=== PATIENT | male | born 1935 | race Caucasian/White ===

== ENCOUNTER 2017-05-07 10:24 | Emergency (ER) | payer MEDICARE ==
[2017-05-07] MEDS ORDERED: LIDOCAINE VIS-MYLANTA 30 ML UD PO ONE (10:39)
--- NOTE | 2017-05-07 11:24 | RAD ---
EXAM DESCRIPTION: Abdomen Flat Upright CLINICAL HISTORY: 81 years,Male,right lower chest upper abd pain 1 week COMPARISON: None FINDINGS: Bowel gas pattern is nonspecific. There is no evidence of free air or significant air-fluid levels. Bony elements are unremarkable. No evidence of radiopaque stones along the course of the kidneys or ureters. Moderate stool throughout the colon IMPRESSION: Possible degree of constipation. Electronically signed by: Andi Gao MD 05/07/2017 11:24 AM CDT
--- NOTE | 2017-05-07 11:24 | RAD ---
EXAM DESCRIPTION: Chest,2 Views CLINICAL HISTORY: 81 years,Male,right lower chest upper abd pain 1 week COMPARISON: None FINDINGS: There are no consolidations. No effusions. No pneumothoraces. No nodules. Bony elements unremarkable for age. Past sternotomy IMPRESSION: No acute findings seen. Electronically signed by: Andi Gao MD 05/07/2017 11:24 AM CDT
--- NOTE | 2017-05-07 11:57 | ED.PDOC ---
History of Present Illness - General Chief Complaint: GI Problem Stated Complaint: upper abdominal pain x 1 week Time Seen by Provider: 05/07/17 10:38 Source: patient Exam Limitations: no limitations - History of Present Illness Initial Comments: the patient is a 81-year-old male [facility] room with right lateral lower chest discomfort and upper abdominal discomfort for the last week. Pain is intermittent and worse with movement. No shortness of breath. He had a couple of episodes of nausea approximately one week ago No real vomiting. No diarrhea. no central chest pain. No fever. No increased pain or nausea with eating. He does have a cardiac history. No new swelling. Timing/Duration: 1 week Severity: mild Improving Factors: immobilization Worsening Factors: movement Associated Symptoms: chest pain - right lateral Allergies/Adverse Reactions: Allergies NO KNOWN ALLERGY Allergy (Unverified 05/07/17 10:43) Review of Systems - Review of Systems Constitutional: States: no symptoms reported EENTM: States: no symptoms reported Respiratory: States: no symptoms reported Cardiology: States: see HPI, chest pain Gastrointestinal/Abdominal: States: see HPI, abdominal pain Genitourinary: States: no symptoms reported Musculoskeletal: States: no symptoms reported Skin: States: no symptoms reported Neurological: States: no symptoms reported Endocrine: States: no symptoms reported All other Systems: No Change from Baseline Past Medical History (General) - Patient Medical History Hx Seizures: No Hx Stroke: No Hx Dementia: No Hx Asthma: No Hx of COPD: No Hx Cardiac Disorders: No Hx Congestive Heart Failure: No Hx Pacemaker: No Hx Hypertension: Yes Hx Thyroid Disease: No Hx Diabetes: Yes Hx Renal Disease: No Hx Cancer: No Hx of HIV: No Hx Hepatitis C: No Hx MRSA: No Surgical History: coronary bypass surgery - Vaccination History Hx Tetanus, Diphtheria Vaccination: No Hx Influenza Vaccination: No Hx Pneumococcal Vaccination: No Immunizations Up to Date: No - Social History Hx Tobacco Use: No Hx Chewing Tobacco Use: No Hx Alcohol Use: No Hx Substance Use: No Hx Substance Use Treatment: No Hx Depression: No Feels Threatened In Home Enviroment: No Feels Threatened In a Relationship: No Hx Physical Abuse: No Hx Emotional Abuse: No Hx Suspected Abuse: No - Female History Patient is a Female of Child Bearing Age (10 -59 yrs old): No Patient : No Family Medical History - Family History Mother Family History: No Known Living Status: Physical Exam - Physical Exam General Appearance: Alert, Comfortable, No apparent distress Eye Exam: bilateral normal Ears, Nose, Throat: hearing grossly normal, normal ENT inspection, normal pharynx Neck: non-tender, full range of motion, supple, normal inspection Respiratory: lungs clear, normal breath sounds, no respiratory distress, no accessory muscle use Cardiovascular/Chest: normal peripheral pulses, regular rate, rhythm, no edema Peripheral Pulses: radial,right: 2+, radial,left: 2+, dorsalis pedis,right: 2+, dorsalis pedis,left: 2+, posterior tibialis,right: 2+, posterior tibialis,left: 2+ Gastrointestinal/Abdominal: soft, other - the patient has some discomfort palpation over the lateral right mid torso. No bruising. No deformity. No rebound or peritoneal signs. Rectal Exam: deferred Back Exam: normal inspection, no CVA tenderness, no vertebral tenderness Extremity: normal range of motion, non-tender, normal inspection, normal capillary refill, other - he does have chronic +1 edema to the left lower extremity Neurologic: paraprofessional aide II-XII nml as tested, alert, normal mood/affect, oriented x 3 Skin Exam: normal color Comments: Vital Signs - 24 hr 05/07/17 05/07/17 10:43 11:30 Temperature 97 F L Pulse Rate [ 71 67 Left Radial] Respiratory 20 20 Rate Blood Pressure 190/87 124/72 [Left Arm] O2 Sat by Pulse 98 96 Oximetry Progress - Progress Progress: 05/07/17 12:01 the patient is a 81-year-old male presenting with right lateral torso pain. This appears to be due most likely to constipation. He should take 1 dose of milk of magnesia today and repeat that tomorrow. He does need to increase his fluid intake. his creatinine was 1.45 today. This does need to be followed up with his primary care doctor. ER warnings were given. - Results/Orders Results/Orders: Laboratory Tests 05/07/17 05/07/17 05/07/17 11:00 11:00 11:00 WBC 7.7 RBC 5.13 Hgb 14.5 Hct 43.8 MCV 85.4 MCH 28.3 MCHC 33.2 RDW 14.5 Plt Count 200 MPV 7.1 L Absolute Neuts (auto) 5.50 Absolute Lymphs (auto) 1.10 Absolute Monos (auto) 0.80 Absolute Eos (auto) 0.30 Absolute Basos (auto) 0.00 Neutrophils % 71.7 Lymphocytes % 14.7 L Monocytes % 9.7 H Eosinophils % 3.3 Basophils % 0.6 PT 11.0 INR 0.970 PTT (SP) 34.8 Sodium 140 Potassium 4.6 Chloride 104 Carbon Dioxide 29 Anion Gap 11.6 L BUN 28 H Creatinine 1.45 H BUN/Creatinine Ratio 19.3 Random Glucose 160 H Serum Osmolality 288.3 Calcium 9.5 Total Bilirubin 0.6 AST 20 ALT 19 Alkaline Phosphatase 64 Creatine Kinase 94 CK-MB (CK-2) 4.2 CK-MB (CK-2) % Not Reportable Troponin I < 0.02 B-Natriuretic Peptide 93.2 Serum Total Protein 7.3 Albumin 4.1 Globulin 3.2 Albumin/Globulin Ratio 1.3 Amylase 63 Lipase 30 Urine Color Urine Appearance Urine pH Ur Specific [place] Urine Protein Urine Glucose (UA) Urine Ketones Urine Blood Urine Nitrite Urine Bilirubin Urine Urobilinogen Ur Leukocyte Esterase Urine RBC Urine WBC Ur Epithelial Cells Urine Bacteria 05/07/17 11:30 WBC RBC Hgb Hct MCV MCH MCHC RDW Plt Count MPV Absolute Neuts (auto) Absolute Lymphs (auto) Absolute Monos (auto) Absolute Eos (auto) Absolute Basos (auto) Neutrophils % Lymphocytes % Monocytes % Eosinophils % Basophils % PT INR PTT (SP) Sodium Potassium Chloride Carbon Dioxide Anion Gap BUN Creatinine BUN/Creatinine Ratio Random Glucose Serum Osmolality Calcium Total Bilirubin AST ALT Alkaline Phosphatase Creatine Kinase CK-MB (CK-2) CK-MB (CK-2) % Troponin I B-Natriuretic Peptide Serum Total Protein Albumin Globulin Albumin/Globulin Ratio Amylase Lipase Urine Color Yellow Urine Appearance Clear Urine pH 5.0 Ur Specific [place] 1.015 Urine Protein Negative Urine Glucose (UA) Negative Urine Ketones Negative Urine Blood Negative Urine Nitrite Negative Urine Bilirubin Negative Urine Urobilinogen 0.2 Ur Leukocyte Esterase Negative Urine RBC 0 Urine WBC 0 Ur Epithelial Cells 0 Urine Bacteria 0 chest x-ray appears benign. Abdominal x-ray shows constipation. EKG shows normal sinus rhythm with a first degree AV block. No acute ST segment changes concerning for Ischemia. Departure - Departure Clinical Impression: Constipation Qualifiers: Constipation type: unspecified constipation type Qualified Code(s): K59.00 - Constipation, unspecified Disposition: Discharge to Home or Self Care Condition: Fair Departure Forms: ED Discharge - Pt. Copy, Patient Portal Self Enrollment Instructions: DI for Constipation Diet: low fat, low cholesterol - High-fiber Activity: increase activity as tolerated Referrals: Andi Rock III, MD [Primary Care Provider] - 1-5 Days Additional Instructions: the patient is a 81-year-old male presenting with right lateral torso pain. This appears to be due most likely to constipation. He should take 1 dose of milk of magnesia today and repeat that tomorrow. He does need to increase his fluid intake. his creatinine was 1.45 today. This does need to be followed up with his primary care doctor. ER warnings were given.
[2017-05-07 12:11] VITALS: BP 150/78; TEMP 98; O2SAT 98
== END 2017-05-07 12:11 | disposition home or self-care (01) ==
LOC: ER 10:24
DX: K59.00 Constipation, unspecified (principal); R07.9 Chest pain, unspecified; I10 Essential (primary) hypertension; E11.9 Type 2 diabetes mellitus without complications; Z95.1 Presence of aortocoronary bypass graft

== ENCOUNTER → 2017-05-15 | Outpatient (CLI) | payer MEDICARE | LOC: GMAL 16:54 | PROVIDERS: ATTEND Family Medicine | DX: R10.84 Generalized abdominal pain (principal) ==

== ENCOUNTER → 2017-05-17 | Outpatient (CLI) | payer MEDICARE ==
--- NOTE | 2017-05-18 02:09 | US ---
Procedure: US GALLBLADDER Exam Date: 05/17/2017 Ordering Provider: ANDREW WHEELER Clinical Indication: GENERALIZED ABDOMINAL PAIN Comparison: None Technique: Real-time ultrasonography was obtained over the right upper quadrant and computer help desk representative images were recorded. Findings: There are no gallstones within the gallbladder lumen. There is no gallbladder wall thickening or pericholecystic fluid. The gallbladder is normal in size and contour. The extrahepatic common duct is normal in size measuring 4.3 mm. The liver is normal in size and contour. There is normal echogenicity throughout the liver. There is no hepatic mass. There is no intrahepatic ductal dilatation. Visualized portions of the pancreas are unremarkable. There is no ascites. Impression: Negative gallbladder ultrasound. Electronically signed by: Mukund Curtis MD 05/18/2017 2:09 AM CDT
== END | disposition home or self-care (01) ==
LOC: US 09:40
PROVIDERS: ATTEND Family Medicine
DX: R10.84 Generalized abdominal pain (principal)

== ENCOUNTER → 2017-05-24 | Outpatient (CLI) | payer MEDICARE ==
--- NOTE | 2017-05-25 00:59 | NM ---
PROCEDURE: Hepatobiliary w/oCCK Clinical History: RUQ PAIN Indication: Same as above Comparison: There are no comparable prior examinations available at present. Technique: 8.0 Millicuries of technetium mebrofenin was given intravenously and the patient was imaged for the subsequent 60 minutes after radiopharmaceutical injection. An 8 ounce fatty meal challenge was given for evaluation of gallbladder ejection fraction Findings: The liver shows homogenous tracer uptake. There is no intrahepatic biliary dilatation. The activity is seen in the common duct at 9.0 minutes into the study. The gallbladder is visualized at 12.0 minutes into the study. At the end of the initial phase scanning fatty meal challenge was given and the gallbladder was imaged again There is no documentation of any subjective symptoms experienced by the patient following CCK injection. The gallbladder ejection fraction is 43.0 percent. Impression: 1. There is no scintigraphic evidence of acute cholecystitis. 2. The gallbladder ejection fraction is normal at 43% . Electronically signed by: Ludin De La O MD 05/25/2017 12:58 AM CDT Workstation: [id number]
== END | disposition home or self-care (01) ==
LOC: NM 08:40
PROVIDERS: ATTEND Family Medicine
DX: R10.11 Right upper quadrant pain (principal)
CPT/HCPCS: 78226; A9537

== ENCOUNTER → 2017-06-26 | Outpatient (CLI) | payer MEDICARE | END | disposition home or self-care (01) | LOC: GMAL 10:22 | PROVIDERS: ATTEND Family Medicine | DX: D51.3 Other dietary vitamin B12 deficiency anemia (principal); Z12.5 Encounter for screening for malignant neoplasm of prostate; R53.83 Other fatigue; E55.9 Vitamin D deficiency, unspecified | CPT/HCPCS: 82306; 82607; 84443; G0103 ==

== ENCOUNTER → 2018-01-21 | Outpatient (CLI) | payer MEDICARE | LOC: GMAL 15:54 | PROVIDERS: ATTEND Family Medicine | DX: N39.0 Urinary tract infection, site not specified (principal) ==

== ENCOUNTER → 2018-01-22 | Outpatient (CLI) | payer MEDICARE | LOC: GMAL 11:00 | PROVIDERS: ATTEND Family Medicine | DX: D51.3 Other dietary vitamin B12 deficiency anemia (principal) ==

== ENCOUNTER → 2018-05-09 | Outpatient (CLI) | payer MEDICARE | LOC: GMAL 10:40 | PROVIDERS: ATTEND Family Medicine | DX: E55.9 Vitamin D deficiency, unspecified (principal) ==

== ENCOUNTER → 2018-05-10 | Outpatient (CLI) | payer MEDICARE | LOC: GMAL 11:20 | PROVIDERS: ATTEND Family Medicine | DX: N39.0 Urinary tract infection, site not specified (principal) ==

== ENCOUNTER → 2018-06-10 | Outpatient (CLI) | payer MEDICARE ==
--- NOTE | 2018-06-10 09:52 | US ---
EXAM DESCRIPTION: Bladder CLINICAL HISTORY: 82 years Male, PRE/POST VOID COMPARISON: None. FINDINGS: Normal bladder wall thickness. The prevoid volume of the bladder is measured at 64 mL. After voiding, the residuum in the bladder measures 7.4 mL which is small. No bladder mass. No bladder stones. IMPRESSION: No abnormality of the bladder is identified. Electronically signed by: Siddharth Mccabe MD 06/10/2018 9:50 AM CDT
== END ==
LOC: US 08:00
PROVIDERS: ATTEND Family Medicine
DX: N40.1 Benign prostatic hyperplasia with lower urinary tract symptoms (principal)

== ENCOUNTER → 2018-11-07 | Outpatient (CLI) | payer MEDICARE | LOC: GMAL 10:13 | PROVIDERS: ATTEND Family Medicine | DX: E55.9 Vitamin D deficiency, unspecified (principal); Z12.5 Encounter for screening for malignant neoplasm of prostate | CPT/HCPCS: 82306; G0103 ==

== ENCOUNTER → 2019-09-16 | Outpatient (CLI) | payer MEDICARE | LOC: GMAL 15:19 | PROVIDERS: ATTEND Family Medicine | DX: D51.8 Other vitamin B12 deficiency anemias (principal); D50.8 Other iron deficiency anemias ==

== ENCOUNTER 2019-09-21 08:48 | Observation (INO) | payer MEDICARE ==
[2019-09-21] MEDS ORDERED: SODIUM CHLORIDE 0.9% (FLUSH) 10 ML SYG IV PRN ×2 (09:02→11:33)
[2019-09-21] MEDS ORDERED: ASPIRIN TABLET 325 MG TAB PO ONE (09:02)
--- NOTE | 2019-09-21 10:06 | ED.PDOC ---
History of Present Illness - General Chief Complaint: Cardiovascular Problem Stated Complaint: Irregular HR, SOB, dizziness Time Seen by Provider: 09/21/19 09:02 - History of Present Illness Initial Comments: c/o having low heart rate in 30s associated with dizziness and sob this morning , no chest pain or nausea or vomiting Severity: moderate Activities at Onset: none Prior Chest Pain/Cardiac Workup: no prior chest pain Improving Factors: nothing Worsening Factors: nothing Allergies/Adverse Reactions: Allergies NO KNOWN ALLERGY Allergy (Unverified 05/07/17 10:43) Review of Systems - Review of Systems Constitutional: States: no symptoms reported EENTM: States: no symptoms reported Respiratory: States: no symptoms reported Cardiology: States: see HPI Gastrointestinal/Abdominal: States: no symptoms reported Genitourinary: States: no symptoms reported Musculoskeletal: States: no symptoms reported Skin: States: no symptoms reported Neurological: States: no symptoms reported Endocrine: States: no symptoms reported Hematologic/Lymphatic: States: no symptoms reported Past Medical History (General) - Patient Medical History Hx Seizures: No Hx Stroke: No Hx Dementia: No Hx Asthma: No Hx of COPD: No Hx Cardiac Disorders: Yes - Dyslipidemia Hx Congestive Heart Failure: No Hx Pacemaker: No Hx Hypertension: Yes Hx Thyroid Disease: No Hx Diabetes: Yes Hx Renal Disease: No Hx Cancer: No Hx of HIV: No Hx Hepatitis C: No Hx MRSA: No Surgical History: coronary bypass surgery - Vaccination History Hx Tetanus, Diphtheria Vaccination: No Hx Influenza Vaccination: Yes - 2019 Hx Pneumococcal Vaccination: Yes - Social History Hx Tobacco Use: No Hx Chewing Tobacco Use: Yes Hx Alcohol Use: No Hx Substance Use: No Hx Substance Use Treatment: No Hx Depression: No Hx Physical Abuse: No Hx Emotional Abuse: No Hx Suspected Abuse: No - Female History Patient : No Family Medical History - Family History Mother Family History: No Known Living Status: Physical Exam - Physical Exam General Appearance: Alert, Comfortable Eyes, Ears, Nose, Throat Exam: PERRL/EOMI, normal ENT inspection Neck: non-tender, full range of motion, supple, normal inspection Respiratory: chest non-tender, lungs clear, normal breath sounds, no respiratory distress, no accessory muscle use Cardiovascular/Chest: bradycardia Extremity: normal range of motion, non-tender, normal inspection Neurologic: no motor/sensory deficits, alert, normal mood/affect, oriented x 3 Skin Exam: normal color, warm/dry Progress - Progress Progress: 09/21/19 10:08 09/21/19 09:02 Sodium Chloride 0.9% (Flush) [Saline Flush Syringe] 10 ml IV PRN PRN Pulse Ox Stat Chest,1 View [RAD] Stat 09/21/19 09:15 EKG STAT 09/21/19 09:58 EKG Assessment ONCE 09/21/19 10:00 EKG STAT Laboratory Results WBC 9.7 K/mm3 (4.8-10.8) 09/21/19 09:05 RBC 4.13 M/mm3 (4.70-6.10) L 09/21/19 09:05 Hgb 9.8 gm/dL (14.0-18.0) L 09/21/19 09:05 Hct 30.9 % (42.0-52.0) L 09/21/19 09:05 MCV 74.9 fl (80.0-94.0) L 09/21/19 09:05 MCH 23.7 pg (27.0-31.0) L 09/21/19 09:05 MCHC 31.6 g/dL (33.0-37.0) L 09/21/19 09:05 RDW 16.1 % (11.5-14.5) H 09/21/19 09:05 Plt Count 253 K/mm3 (130-400) 09/21/19 09:05 MPV 7.8 fl (7.40-10.4) 09/21/19 09:05 Absolute Neuts (auto) 6.80 K/uL (1.8-6.8) 09/21/19 09:05 Absolute Lymphs (auto) 1.40 K/uL (1.0-3.4) 09/21/19 09:05 Absolute Monos (auto) 1.20 K/uL (0.2-0.8) H 09/21/19 09:05 Absolute Eos (auto) 0.20 K/uL (0.0-0.4) 09/21/19 09:05 Absolute Basos (auto) 0.10 K/uL (0.0-0.1) 09/21/19 09:05 Neutrophils % 70.4 % (42.0-78.0) 09/21/19 09:05 Lymphocytes % 14.2 % (20.0-50.0) L 09/21/19 09:05 Monocytes % 12.4 % (2.0-9.0) H 09/21/19 09:05 Eosinophils % 2.3 % (1.0-5.0) 09/21/19 09:05 Basophils % 0.7 % (0.0-2.0) 09/21/19 09:05 Normal RBC Morphology 1+aniso 1+hypochromia 1+microcytosis Plts danish adequate 1+ovalocytes Stain quality accept 09/21/19 09:05 Normal RBC Morphology 1+aniso 1+hypochromia 1+microcytosis Plts danish adequate 1+ovalocytes Stain quality accept 09/21/19 09:05 Normal RBC Morphology 1+aniso 1+hypochromia 1+microcytosis Plts danish adequate 1+ovalocytes Stain quality accept 09/21/19 09:05 Normal RBC Morphology 1+aniso 1+hypochromia 1+microcytosis Plts danish adequate 1+ovalocytes Stain quality accept 09/21/19 09:05 Normal RBC Morphology 1+aniso 1+hypochromia 1+microcytosis Plts danish adequate 1+ovalocytes Stain quality accept 09/21/19 09:05 Normal RBC Morphology 1+aniso 1+hypochromia 1+microcytosis Plts danish adequate 1+ovalocytes Stain quality accept 09/21/19 09:05 PT 11.0 SECONDS (9.0-10.9) H 09/21/19 09:05 INR 1.10 (0.9-1.15) 09/21/19 09:05 PTT (SP) 30.5 SECONDS (21.8-31.6) 09/21/19 09:05 D-Dimer, Quantitative 0.72 mg/L FEU (0-0.49) H* 09/21/19 09:05 Sodium 138 mmol/L (135-145) 09/21/19 09:05 Potassium 4.3 mmol/L (3.6-5.0) 09/21/19 09:05 Chloride 101 mmol/L (101-111) 09/21/19 09:05 Carbon Dioxide 24 mmol/L (21-31) 09/21/19 09:05 Anion Gap 17.3 (12-18) 09/21/19 09:05 BUN 28 mg/dL (7-18) H 09/21/19 09:05 Creatinine 1.85 mg/dL (0.6-1.3) H 09/21/19 09:05 BUN/Creatinine Ratio 15.1 (10-20) 09/21/19 09:05 Random Glucose 93 mg/dL (70-105) 09/21/19 09:05 Serum Osmolality 280.8 mOsm/L (275-295) 09/21/19 09:05 Calcium 8.8 mg/dL (8.4-10.2) 09/21/19 09:05 Magnesium 1.7 mg/dL (1.8-2.5) L 09/21/19 09:05 Total Bilirubin 0.5 mg/dL (0.2-1.0) 09/21/19 09:05 Direct Bilirubin < 0.1 mg/dL (0-0.2) 09/21/19 09:05 Indirect Bilirubin 0.4 mg/dL (0.2-0.8) 09/21/19 09:05 AST 17 IU/L (10-42) 09/21/19 09:05 ALT 14 IU/L (10-60) 09/21/19 09:05 Alkaline Phosphatase 53 IU/L (42-121) 09/21/19 09:05 Creatine Kinase 104 IU/L (38-174) 09/21/19 09:05 CK-MB (CK-2) 3.4 ng/mL (0.0-4.4) 09/21/19 09:05 CK-MB (CK-2) % Not Reportable 09/21/19 09:05 Troponin I 0.03 ng/mL (0.01-0.05) 09/21/19 09:05 B-Natriuretic Peptide 543.0 pg/ml (0-100) H* 09/21/19 09:05 Serum Total Protein 7.2 gm/dL (6.4-8.2) 09/21/19 09:05 Albumin 3.9 g/dl (3.2-5.5) 09/21/19 09:05 - EKG/XRAY/CT EKG: Sinus - PVCs Departure - Departure Clinical Impression: Symptomatic sinus bradycardia, Bradycardia Disposition: Admit Patient Departure Forms: ED Discharge - Pt. Copy, Patient Portal Self Enrollment Referrals: Andi Rock III, MD [Primary Care Provider] - 1-2 Weeks
--- NOTE | 2019-09-21 10:13 | RAD ---
EXAM: XR Chest, 1 View CLINICAL HISTORY: sob TECHNIQUE: Frontal view of the chest. COMPARISON: 05/07/2017. FINDINGS: Limitations: None. Lungs: See below. Pleural space: Unremarkable. No pneumothorax. Heart: Unremarkable. No cardiomegaly. Mediastinum: Unremarkable. Bones/joints: Unremarkable. Upper abdomen: Stable elevated right hemidiaphragm with mild right basilar scarring. IMPRESSION: No acute findings in the chest. Electronically signed by: Leighann Nelson MD 09/21/2019 10:11 AM CDT
--- NOTE | 2019-09-21 10:19 | HP ---
SUPERVISING PHYSICIAN: Levon Sousa M.D. CHIEF COMPLAINT: Dizziness and low heart rate with mild shortness of breath. HISTORY OF PRESENT ILLNESS: This is an 83 year-old male patient who has had complaints of low heart rate with some mild dizziness over the last day or so. He sees Dr. Jaramillo, retrimmer in [place]. About 3 weeks ago he had an EKG and echocardiogram done. At that time his Metoprolol was decreased to 50 mg b.i.d., and his ARB was also cut in half. He has had several incidences in the past where his heart rate dropped down but he has never been diagnosed with SVT or atrial fibrillation. He spoke with his primary care physician, Dr. Rock, last week and Dr. Rock encouraged him to take a manual heart rate as well as checking on his blood pressure cuff. Yesterday his heart rate got as low as 30, it mostly ran in the 30s to 70s. He was somewhat dizzy and felt like he was stumbling around, and he came to the Emergency Room. In the E. R., his initial vital signs showed a temperature of 97, heart rate 50 to 78 with blood pressure 160/64, respiratory rate 18 and 100% O2 sat on room air. EKG showed sinus ramsey to sinus rhythm. Laboratory showed WBC of 9.7 with hemoglobin 9.8 and hematocrit 30.9. He had a normal differential. He did have an elevated D-dimer at 0.72. We were unable to do a CTA due to his elevated creatinine of 1.85. He does have a history of renal insufficiency. Electrolytes were within normal limits with the exception of his magnesium was elevated at 1.7 and BNP was 543. He does not have a history of congestive heart failure. Chest x-ray showed no acute findings in the chest. I was called for hospital admission. PAST MEDICAL HISTORY: 1. Hypertension. 2. Hyperlipidemia. 3. Mild gastroesophageal reflux disease. 4. Diabetes mellitus type 2. 5. Renal insufficiency. PAST SURGICAL HISTORY: 1. Coronary bypass surgery times 5. 2. Cardiac stents times 2. CURRENT MEDICATIONS: ALLERGIES: NO KNOWN DRUG ALLERGIES. SOCIAL HISTORY: He lives in [place]. He quit smoking 40 years ago. He does occasionally use chewing tobacco. There is no history of ETOH or illicit drug use. REVIEW OF SYSTEMS: GENERAL: Negative for fatigue, fever or weight changes. HEENT: Negative for sinus symptoms, ear pain, vision changes or sore throat. RESPIRATORY: Positive for mild shortness of breath with exertion. Negative for wheezing or coughing. CARDIAC: Positive for fluttering in his chest but denies chest pain or tachycardia. GASTROINTESTINAL: Negative for nausea, vomiting, diarrhea or constipation. GENITOURINARY: Negative for hematuria, dysuria or polyuria. MUSCULOSKELETAL: Negative for arthralgias or myalgias. SKIN: Negative for lesions or rashes. NEUROLOGIC: Positive for dizziness. Negative for headaches or seizures. PHYSICAL EXAMINATION: VITAL SIGNS: Temperature 97.5, heart rate 73, blood pressure 155/55, respiratory rate 20, O2 sat 97% on room air. GENERAL: This is an 83 year-old male patient who is sitting up in his hospital bed. He is in no acute distress. HEENT: Normocephalic and atraumatic. Pupils are equal and reactive. Oropharynx is clear. NECK: Supple without mass. There is no discernible jugular venous distention. RESPIRATORY: Essentially clear to auscultation bilaterally. CHEST: There is equal rise and fall of the chest with inspiration and expiration. CARDIOVASCULAR: Regular rate and rhythm. At times he is slightly bradycardic, sinus rhythm and sinus ramsey on equipment monitor phototypesetting. EXTREMITIES: No clubbing, cyanosis or edema. SKIN: Warm and dry. NEUROLOGIC: He is awake, alert and oriented times three. Cranial nerves II-XII are grossly intact. LABORATORY: Labs and films are as per the History of Present Illness. ASSESSMENT: 1. Dizziness with bradycardia. 2. Acute on chronic renal insufficiency. His baseline creatinine is about 1.4. On admission, it is 1.85. 3. Iron-deficiency anemia. 4. History of hypertension. 5. Hyperlipidemia. PLAN: The patient has been placed in observation. We will monitor his heart rate tonight. Most likely he can be discharged tomorrow. It may be helpful to get a Holter monitor. He will need a followup with Dr. Rock. It should be recommended that he followup with his retrimmer, Dr. Jaramillo, in the next few weeks. Will need to clarify his medications. I believe his Metoprolol was decreased to 50 mg b.i.d. Her ARB has also been decreased but there is no record of what ARB he is on, so we will need to clarify that. I will hold his Metoprolol for right now until we watch his heart rate and blood pressure. His other home medications have been restarted. I will repeat his lab for in the morning. Will continue to monitor closely and follow as needed. #[id number] MTDD
[2019-09-21] MEDS ORDERED: MAGNESIUM SULFATE PREMIX 2GM 2 GM in PREMIX BAG 1 BAG IVPB ONE (11:30)
[2019-09-21] MEDS ORDERED: DEXTROSE 50% 25 GM/50 ML SYG IV PRN (11:32)
[2019-09-21] MEDS ORDERED: GLUCAGON INJ 1 MG VIAL SUBCU PRN (11:32)
[2019-09-21] MEDS ORDERED: ONDANSETRON INJ 4 MG/2 ML VIAL IV PRN (11:33)
[2019-09-21] MEDS ORDERED: IV SET AND CAP CHANGE INJ INJ SCH (12:00)
[2019-09-21] MEDS ORDERED: MAGNESIUM SULFATE PREMIX 2GM 50 ML IVPB ONE (12:16)
[2019-09-21] MEDS: ENOXAPARIN SODIUM 30 MG/0.3 ML SYG SUBCU SCH (12:20)
[2019-09-21] MEDS: VALSARTAN 80 MG TAB PO SCH (12:23)
[2019-09-21] MEDS: INSULIN LISPRO 100 UNITS/ML PEN SUBCU SCH ×2 (16:52→21:32)
[2019-09-21] MEDS ORDERED: metFORMIN HCL 500 MG TAB ONE (19:10)
[2019-09-21] MEDS ORDERED: PANTOPRAZOLE SODIUM IV 40 MG VIAL ONE (19:10)
[2019-09-21] MEDS: SODIUM CHLORIDE 0.9% (FLUSH) 10 ML SYG IV SCH (20:45)
[2019-09-21] MEDS ORDERED: METFORMIN HCL 850 MG PO SCH (21:00)
[2019-09-21] MEDS ORDERED: ATORVASTATIN 20 MG TAB PO SCH (21:00)
[2019-09-22] MEDS ORDERED: PANTOPRAZOLE SODIUM IV 40 MG VIAL IV SCH (06:30)
[2019-09-22] MEDS ORDERED: POTASSIUM CHLORIDE 10 MEQ TAB PO SCH (07:30)
[2019-09-22] MEDS: INSULIN LISPRO 100 UNITS/ML PEN SUBCU SCH ×3 (07:31→17:09)
[2019-09-22] MEDS: SODIUM CHLORIDE 0.9% (FLUSH) 10 ML SYG IV SCH (07:51)
[2019-09-22] MEDS: ENOXAPARIN SODIUM 30 MG/0.3 ML SYG SUBCU SCH (07:52)
[2019-09-22] MEDS: VALSARTAN 80 MG TAB PO SCH (07:54)
[2019-09-22] MEDS ORDERED: METFORMIN HCL 850 MG PO SCH (09:00)
[2019-09-22] MEDS ORDERED: FUROSEMIDE 40 MG TAB PO SCH (09:00)
[2019-09-22] MEDS ORDERED: SODIUM CHLORIDE 0.9% 1000ML 1,000 ML IVS ONE (12:02)
[2019-09-22] MEDS: METOPROLOL TARTRATE 25 MG TAB PO SCH ×2 (12:26→17:09)
[2019-09-22 16:27] VITALS: BP 123/58; TEMP 98.1; O2SAT 97
--- NOTE | 2019-09-22 21:24 | DS ---
SUPERVISING PHYSICIAN: Landry Walsh M.D. ADMISSION DIAGNOSIS: 1. Dizziness with bradycardia. 2. Acute on chronic renal insufficiency. His baseline creatinine is about 1.4. On admission, it is 1.85. 3. Iron-deficiency anemia. 4. History of hypertension. 5. Hyperlipidemia. DISCHARGE DIAGNOSIS: 1. Dizziness with associated orthostatic hypotension likely due to mild hypovolemia and underlying anemia, specifically iron-deficiency anemia exacerbated by bradycardia due to beta blockers including Metoprolol showing improvement with fluids and medication dosage regimen change. 2. Chronic renal insufficiency at baseline levels. 3. Iron-deficiency anemia contributing to #1. 4. History of hypertension on Valsartan and Metoprolol possibly contributing to #1 needing medication regimen dosage changes. 5. Hyperlipidemia. REASON FOR HOSPITALIZATION: This is an 83 year-old male patient who has had complaints of low heart rate with some mild dizziness over the last day or so. He sees Dr. 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 About 3 weeks ago he had an EKG and echocardiogram done. At that time his Metoprolol was decreased to 50 mg b.i.d., and his ARB was also cut in half. He has had several incidences in the past where his heart rate dropped down but he has never been diagnosed with SVT or atrial fibrillation. He spoke with his primary care physician, Dr. Rock, last week and Dr. Rock encouraged him to take a manual heart rate as well as checking on his blood pressure cuff. Yesterday his heart rate got as low as 30, it mostly ran in the 30s to 70s. He was somewhat dizzy and felt like he was stumbling around, and he came to the Emergency Room. In the E. R., his initial vital signs showed a temperature of 97, heart rate 50 to 78 with blood pressure 160/64, respiratory rate 18 and 100% O2 sat on room air. EKG showed sinus ramsey to sinus rhythm. Laboratory showed WBC of 9.7 with hemoglobin 9.8 and hematocrit 30.9. He had a normal differential. He did have an elevated D-dimer at 0.72. We were unable to do a CTA due to his elevated creatinine of 1.85. He does have a history of renal insufficiency. Electrolytes were within normal limits with the exception of his magnesium was elevated at 1.7 and BNP was 543. He does not have a history of congestive heart failure. Chest x-ray showed no acute findings in the chest. The patient was admitted in stable condition. LABORATORY STUDIES: White count on admission was 9,700, at discharge was 7,200. Hemoglobin and hematocrit after fluids stabilized at 9 and 28.2 respectively. Initially his hemoglobin was 9.8 and hematocrit 30.9, platelet count was within normal limits at 220,000. Differential did show to be without a left shift but his RBC indices indicated microcytic hypochromic anemia. Coagulation studies showed just slightly elevated D-dimer at 0.72. PT was 11, PTT 30.5. Chemistries on admission showed normal electrolytes as well as discharge with creatinine 1.85, magnesium was slightly low at 1.7 but normalized after replacement at 2.0. BNP was slightly elevated at 543. Liver functions were all within normal limits. Stool occult blood was negative. RADIOLOGY: Chest x-ray in the E. R. per radiology interpretation prior to admission showed to be without any acute findings. HOSPITAL COURSE: Mr. Kaur was placed in observation for dizziness. He was given IV fluids. He did have some orthostatic blood pressures during his admission initially before he was given fluids. He was positive for orthostatic hypotension but improved with fluids and prior to discharge was showing blood pressure 145/72 sitting, 156/83 standing and supine was 145/73. Heart rate was anywhere from 75 to 93. He was afebrile. Final blood pressure on discharge was 123/58, heart rate 61. He was no longer showing any dizziness and was asymptomatic. His EKG did show bigeminy on admission and was showing just some rare trigeminy prior to discharge but no acute changes in regards to ST or T wave changes. PHYSICAL EXAMINATION: VITAL SIGNS: He was satting 97% on room air with 18 respirations. GENERAL: The patient was showing to be alert and oriented. He was ambulating without any reported dizziness. CHEST: Clear to auscultation. HEART: Irregular rate and rhythm in the 80s. ABDOMEN: Soft, non-tender. Positive bowel sounds. EXTREMITIES: Showed just a trace of edema bilaterally. Again, he was showing to be stable after fluids. I initially talked with Dr. Rock. His H&H is showing to be stable. He is going to be discharged to followup with Dr. Rock on Sunday after discharge to followup as an outpatient. PLAN: Mr. Kaur is discharged and scheduled to see Dr. Rock on Sunday to repeat labs, including H&H. I did make a medication change in regard to his Metoprolol which we decreased from 10 b.i.d. to 25 mg b.i.d. All other medications were continued as prior to hospitalization. He was given a prescription for a week's worth of the new dosing of Metoprolol awaiting followup with Dr. Rock. He was also placed on a 48 hour Holter monitor. He was given instructions should he have any return of his symptoms or any other concerning symptoms, he was to return to the E. R. or call 911. Diet on discharge was diabetic diet as tolerated. Activity is as tolerated. Medications on discharge included: 1. Metoprolol 25 mg b.i.d. for 7 days awaiting followup with Dr. Rock and to hold his previous dosage of 50 mg b.i.d. All other medications were continued as is prior to hospitalization, includin. Metformin 850 mg b.i.d. 2. Insulin sliding scale 10 to 12 units as directed daily. 3. Lantus 65 units daily. 4. Rosuvastatin 40 mg daily. 5. Potassium chloride 10 mEq daily. 6. Lasix 20 mg daily. 7. Metoprolol as noted above. He is to resume his ARB as directed prior to his admission to the hospital. Condition on discharge was stable and improved. DISPOSITION: The patient is discharged home. #[id number] [facility]TDD
== END 2019-09-22 17:55 | disposition home or self-care (01) ==
LOC: ER 08:48 → MS 10:17
PROVIDERS: ADMIT Nurse Practitioner Acute Care; ATTEND Nurse Practitioner Family
DX: I95.1 Orthostatic hypotension (principal); R42 Dizziness and giddiness; R00.1 Bradycardia, unspecified; N17.9 Acute kidney failure, unspecified; I11.0 Hypertensive heart disease with heart failure; E11.22 Type 2 diabetes mellitus with diabetic chronic kidney disease; N18.9 Chronic kidney disease, unspecified; D50.9 Iron deficiency anemia, unspecified; E87.5 Hyperkalemia; E83.42 Hypomagnesemia; K21.9 Gastro-esophageal reflux disease without esophagitis; E78.5 Hyperlipidemia, unspecified; F17.220 Nicotine dependence, chewing tobacco, uncomplicated; I49.3 Ventricular premature depolarization; Z79.4 Long term (current) use of insulin; Z79.899 Other long term (current) drug therapy; Z95.1 Presence of aortocoronary bypass graft; Z95.5 Presence of coronary angioplasty implant and graft
CPT/HCPCS: 96365; 96375; 96372 ×2; J1650 ×2; J7030; J3475; J1815; 85379; 82270; 80053; 82948 ×6; 85014; 85018; 36415 ×3; 82550; 80048; 82553; 85025 ×2; 85730; 85610; 84484; 80076; 83735; 83880; 36416 ×2; 71045; 94760 ×3; 99285; 93005 ×2; G0378

== ENCOUNTER → 2019-09-22 | Outpatient (CLI) | payer MEDICARE | LOC: RESP 17:12 | PROVIDERS: ATTEND Nurse Practitioner Family | DX: I49.9 Cardiac arrhythmia, unspecified (principal) ==

== ENCOUNTER → 2019-10-02 | Outpatient (CLI) | payer MEDICARE | LOC: GMAL 10:30 | PROVIDERS: ATTEND Family Medicine | DX: D50.8 Other iron deficiency anemias (principal) ==

== ENCOUNTER 2019-10-03 07:23 | Day surgery (SDC) | payer MEDICARE ==
[~2019-10-03 07:23] MED LIST: LACTATED RINGERS 1,000 ML ONE; LIDOCAINE 1% 10 ML VIAL INJ ONE; PROPOFOL 200 MG/20 ML VIAL IV ONE
[2019-10-03] MEDS ORDERED: SODIUM CHLORIDE 0.9% 500ML 500 ML ONE (09:18)
[2019-10-03] MEDS ORDERED: SODIUM CHLORIDE 0.9% 50ML 50 ML ONE (09:20)
[2019-10-03] MEDS ORDERED: IRON DEXTRAN IVPB SCH ×2 (10:00→11:00)
[2019-10-03] MEDS ORDERED: SODIUM CHLORIDE 0.9% IVPB SCH ×2 (10:00→11:00)
[2019-10-03] MEDS ORDERED: IRON DEXTRAN 50 MG/ML IVPB ONE ×2 (10:15→11:20)
--- NOTE | 2019-10-03 11:02 | OP ---
DATE OF PROCEDURE: 10/03/19 PREOPERATIVE DIAGNOSIS: 1. History of gastric polyp. 2. Current anemia. PROCEDURE: 1. EGD with biopsy of antral polyp. SURGEON: Babak Link MD FINDINGS: 2.5 to 3 cm wide-based polyp in the antrum, posterior wall, biopsy taken. COMPLICATIONS: None. ESTIMATED BLOOD LOSS: Minimal. PLAN: Biopsy result and recommended surgery. INDICATION: This is an 83-year-old man who has a known history of anemia with a gastric polyp that was removed sometime ago. He presented with continued anemia. No history of hematemesis. EGD was recommended. PROCEDURE: He was completely consented and made comfortable in lateral position. The endoscope was passed without difficulty, passed the vocal cords and into the esophagus, which appeared normal. Upon entry to the stomach, it was normal with no evidence of blood, but on the antrum, we noticed a polyp. We went through to the deep duodenum and found no evidence of duodenal ulcers or masses. Upon withdrawal, we then assessed this polyp. The base is quite wide and did not seem amenable to snare excision and looks like it needs to be removed surgically. It was 2.5 to 3 cm with a bleeding top, again, very wide based. A biopsy was taken. There was also another small area of blood which could be an exposed vessel opposite this, about the same distance from the pylorus, but it could be an ulcer on a vessel. It was not biopsied and with surgery, it would be removed as well. The remainder of the stomach appeared normal. Upon retroflexion, there was no pathology. The stomach was desufflated. Upon withdrawal, the GE junction appeared normal as did the esophagus. The scope was removed. The patient tolerated the procedure and was taken to Recovery to be discharged. #[id number] cc: Andi Rock MD [facility]
[2019-10-03 15:49] VITALS: BP 135/67; TEMP 97.9; O2SAT 96
== END 2019-10-03 15:45 | disposition home or self-care (01) ==
LOC: AMB 07:23
PROVIDERS: ATTEND Surgery
DX: D64.9 Anemia, unspecified (principal); K31.7 Polyp of stomach and duodenum; K59.00 Constipation, unspecified; E78.5 Hyperlipidemia, unspecified; I25.10 Atherosclerotic heart disease of native coronary artery without angina pectoris; I12.9 Hypertensive chronic kidney disease with stage 1 through stage 4 chronic kidney disease, or unspecified chronic kidney disease; E11.22 Type 2 diabetes mellitus with diabetic chronic kidney disease; N18.9 Chronic kidney disease, unspecified; I35.0 Nonrheumatic aortic (valve) stenosis; Z87.891 Personal history of nicotine dependence; Z95.1 Presence of aortocoronary bypass graft; Z88.8 Allergy status to other drugs, medicaments and biological substances; Z79.4 Long term (current) use of insulin; Z79.82 Long term (current) use of aspirin; Z79.899 Other long term (current) drug therapy
CPT/HCPCS: 00731; 36416; 43239; 82948; 88305; A4216; J1750; J3490; J7040; J7120

== ENCOUNTER 2019-11-06 05:23 | Day surgery (SDC) | payer MEDICARE ==
[2019-11-06] MEDS ORDERED: LACTATED RINGERS 1,000 ML ONE (07:00)
[2019-11-06] MEDS ORDERED: PROPOFOL 200 MG/20 ML VIAL IV ONE (07:00)
[2019-11-06] MEDS ORDERED: LIDOCAINE 1% 10 ML VIAL INJ ONE (07:00)
[2019-11-06] MEDS ORDERED: DEXTROSE 5% 100ML 100 ML IVPB ONE (08:06)
[2019-11-06] MEDS ORDERED: fentaNYL CITRATE INJ 50 MCG/ML AMP ONE (08:12)
[2019-11-06] MEDS ORDERED: MIDAZOLAM INJ 2 MG/2 ML VIAL ONE (08:12)
[2019-11-06 08:15] VITALS: TEMP 98.3; O2SAT 99
[2019-11-06 09:11] VITALS: BP 95/41
--- NOTE | 2019-11-06 10:08 | OP ---
DATE OF PROCEDURE: 11/06/19 PREOPERATIVE DIAGNOSIS: 1. Gastric polyp. POSTOPERATIVE DIAGNOSIS: 1. Gastric polyp. PROCEDURE: 1. EGD with assessment. SURGEON: Babak Link MD FINDINGS: The polyp itself is at least 3 cm with even a wider base. On manipulation, it appears affixed to underlying tissues and not amenable to submucosal resection. There was a clot on the surface, but not actively bleeding. The patient will need an open removal. INDICATION: This is a male with a history of anemia. He was scoped previously and found to have this polyp. A biopsy was performed. It does show benign. We described that we would attempt a submucosal resection. He has been anemic, but stable. He is off his blood thinner and on aspirin, which he must continue. I did discuss if it does appear to be too risky to remove due to risk of bleeding and depth of the polyp, that we would have schedule open removal. PROCEDURE: Anesthesia was induced. The scope was introduced without difficulty. There was a little bit of blood in the distal stomach and we found the polyp. It was more precisely measured, at least 3 cm at its base and the mucosal pattern shows a wider base to the actual polyp. This has been removed before and recurred. There was no active bleeding at this time. There was a fixed clot on top. We manipulated it with the injection forceps in anticipation of submucosal injection and it definitely moved the wall of the colon. It appeared deep to the submucosa and also quite wide, so I do not think it is safe to remove this due to bleeding risk and the risk of not getting it all out, so he will require an open resection. It appears to be anterior. We can do this open and palpate it and just do a focal resection of that polyp. He tolerated the procedure and was taken to Recovery. I will discuss with his family. #[id number] [facility]
== END 2019-11-06 09:40 | disposition home or self-care (01) ==
LOC: AMB 05:23
PROVIDERS: ATTEND Surgery
DX: D13.1 Benign neoplasm of stomach (principal); D50.9 Iron deficiency anemia, unspecified; K59.00 Constipation, unspecified; I25.10 Atherosclerotic heart disease of native coronary artery without angina pectoris; E78.00 Pure hypercholesterolemia, unspecified; I12.9 Hypertensive chronic kidney disease with stage 1 through stage 4 chronic kidney disease, or unspecified chronic kidney disease; E11.22 Type 2 diabetes mellitus with diabetic chronic kidney disease; N18.9 Chronic kidney disease, unspecified; Z87.891 Personal history of nicotine dependence; Z95.1 Presence of aortocoronary bypass graft; Z88.8 Allergy status to other drugs, medicaments and biological substances; Z79.4 Long term (current) use of insulin; Z79.82 Long term (current) use of aspirin; Z79.899 Other long term (current) drug therapy
CPT/HCPCS: 00731; 36416; 43235; 82948; J2250; J3010; J3490; J7060; J7120

== ENCOUNTER → 2019-11-12 | Outpatient (CLI) | payer MEDICARE | LOC: GMAL 10:43 | PROVIDERS: ATTEND Family Medicine | DX: D50.8 Other iron deficiency anemias (principal); I10 Essential (primary) hypertension ==

== ENCOUNTER → 2019-12-17 | Outpatient (CLI) | payer MEDICARE | LOC: LAB.O 11:20 | PROVIDERS: ATTEND Surgery | DX: D50.9 Iron deficiency anemia, unspecified (principal) ==

== ENCOUNTER 2019-12-18 05:42 | Inpatient (IN) | payer MEDICARE ==
[2019-12-18] MEDS ORDERED: MAGNESIUM SULFATE INJ 1 GM/2 ML VIAL ONE (07:00)
[2019-12-18] MEDS ORDERED: ePHEDrine SULF 50 MG/ML ONE (07:00)
[2019-12-18] MEDS ORDERED: raNITIdine HCL INJ 25 MG/ML VIAL ONE (07:00)
[2019-12-18] MEDS ORDERED: DEXAMETHASONE INJ 10 MG/ML VIAL ONE (07:00)
[2019-12-18] MEDS ORDERED: LIDOCAINE 1% 10 ML VIAL INJ ONE (07:00)
[2019-12-18] MEDS ORDERED: PROPOFOL 200 MG/20 ML VIAL IV ONE (07:00)
[2019-12-18] MEDS ORDERED: cefOXitin SODIUM 2 GM INJ IVPB ONE (07:10)
[2019-12-18] MEDS ORDERED: SODIUM CHL 0.9% 50ML MIN-BAG+ 50 ML IVPB ONE ×3 (07:10→19:16)
[2019-12-18] MEDS ORDERED: LACTATED RINGERS 1,000 ML ONE ×2 (07:10→11:18)
[2019-12-18] MEDS ORDERED: fentaNYL CITRATE INJ 50 MCG/ML AMP ONE (09:39)
[2019-12-18] MEDS ORDERED: MIDAZOLAM INJ 2 MG/2 ML VIAL ONE (09:39)
[2019-12-18] MEDS ORDERED: ROCURONIUM BROMIDE 10 MG/ML VIAL ONE (09:39)
[2019-12-18] MEDS: BUPIVACAINE 0.5% W/EPI 30 ML VIAL INJ ONE ×2 (09:50→10:14)
[2019-12-18] MEDS ORDERED: ACETAMINOPHEN IV 1000MG 100 ML ONE (10:03)
[2019-12-18] MEDS ORDERED: HYDROmorphone HCL INJ 2 MG/ML VIAL ONE (10:30)
[2019-12-18] MEDS ORDERED: SUGAMMADEX SODIUM 200 MG/2 ML VIAL IV ONE (10:55)
--- NOTE | 2019-12-18 11:44 | OP ---
DATE OF PROCEDURE: 12/18/19 PREOPERATIVE DIAGNOSIS: 1. Bleeding gastric polyp not amenable to endoscopic resection. POSTOPERATIVE DIAGNOSIS: 1. Bleeding gastric polyp not amenable to endoscopic resection. PROCEDURE: 1. Open gastrotomy with removal of gastric tumor. SURGEON: Babak Link MD ANESTHESIA: General and local. FINDINGS: The tumor was situated in the posterior wall in the prepyloric area about 4 to 5 cm from the pylorus. It was completely excised with no evidence of residual. COMPLICATIONS: None. ESTIMATED BLOOD LOSS: Minimal. CONDITION: Stable. PLAN: Admit. INDICATION: This is an 84-year-old man with a history of anemia. He had been scoped and the polyp was identified. He had had a polypectomy in the past and it was suspected this may have been a recurrence. It was biopsied and shown to be nonmalignant. We went in with the anticipation of doing a submucosal injection and resection, but it appeared to be too thick and deep in the wall and it was felt to be unsafe to remove in this fashion and rather large, so we elected to do an open excision. He was a good surgical candidate. Recent lab had shown no significant anemia at this time. PROCEDURE: The patient was brought the Operating Suite in supine position. General anesthesia was induced. He was prepped and draped in sterile fashion. An upper midline incision was made. Subcutaneous tissues were taken down. The abdominal cavity was entered without difficulty. Everything in the stomach and duodenal area appeared normal. We placed a Bookwalter to get good exposure. On palpation, we identified the polyp in the gastric lumen approximately 5 cm proximal to the pylorus. Stay sutures were placed and the anterior gastrostomy was performed. We readily identified the polyp. It was on the back wall. We were able to elevate it enough to normal mucosa. It was not involving the lesser curvature. It was right in the middle, so no concern for the vagus here. We then stapled across with a TA-60. The staple line was completely hemostatic. The tumor was removed for pathology. The anterior wall was examined and everything looked good. It was then closed in two layers with running Vicryl suture and then a couple of interrupted Silk and then imbricating with 3-0 Silk sutures. Everything looked good. The Bookwalter was removed. There was no evidence of damage from the retractors. The abdominal wall was closed with a running 0-PDS suture and the skin closed with gerald. Dressing was applied. He tolerated the procedure and was awakened and taken to Recovery where he will be admitted. #[id number] cc: Andi Rock MD MTDD
[2019-12-18] MEDS ORDERED: MORPHINE SULFATE INJ 10 MG/ML VIAL IV PRN (12:35)
[2019-12-18] MEDS ORDERED: HYDROcodone 5MG/APAP 325MG 1 EA TAB PO PRN (12:38)
[2019-12-18] MEDS ORDERED: PROMETHAZINE HCL INJ 12.5 MG in SODIUM CHLORIDE 0.9% 50ML 50 ML IVPB PRN (12:39)
--- NOTE | 2019-12-18 14:11 | CONS ---
SUPERVISING PHYSICIAN: Kaylin Walsh MD DATE OF CONSULTATION: 12/18/19 REASON FOR CONSULTATION: Medical management HISTORY OF PRESENT ILLNESS: This is an 84-year-old male patient with a history of a gastric polyp. He had an EGD and although the polyp was biopsied, it was unable to be retrieved. Therefore, the patient today underwent an elective open gastrotomy with removal of a gastric tumor. This was done without any intraoperative complications and he returned to the Unit in stable condition. Please see the operative report. Postoperatively, the patient is alert and oriented, in no distress, however, he does have multiple medical conditions that need to be monitored while in the hospital. PAST MEDICAL HISTORY: 1. Hypertension. 2. Hyperlipidemia. 3. Gastroesophageal reflux disease. 4. Diabetes mellitus, type 2. 5. Renal insufficiency. PAST SURGICAL HISTORY: 1. Coronary artery bypass graft x5. 2. PTCA with stents. MEDICATIONS: Please see the medication reconciliation list in the computer. ALLERGIES: NO KNOWN DRUG ALLERGIES FAMILY HISTORY: Reviewed and noncontributory. SOCIAL HISTORY: The patient lives in [place]. He quit smoking about 40 years ago. No alcohol or illicit drugs. REVIEW OF SYSTEMS: CONSTITUTIONAL: No fever or chills. No recent weight loss or weight gain. HEENT: No headaches, vision changes, ear pain, nasal congestion or throat pain. RESPIRATORY: No cough, hemoptysis or pleuritic chest pain. CARDIOVASCULAR: No chest pain, palpitations or peripheral edema. GASTROINTESTINAL: Positive for incisional discomfort. Otherwise, no nausea, vomiting, diarrhea, constipation. GENITOURINARY: No dysuria, frequency or flank pain. MUSCULOSKELETAL: No muscle cramps, joint pain or joint swelling. ENDOCRINE: No polydipsia, polyuria or polyphagia. No heat or cold intolerance. HEMATOLOGIC: No easy bruising and no transfusion reaction. NEUROLOGIC: No syncope, paresthesias or seizures. PHYSICAL EXAMINATION: VITAL SIGNS: Blood pressure 174/77. Heart rate 71. Respiratory rate 97.9. Oxygen saturation 94%. GENERAL: Mr. Kaur is an 84-year-old male patient who is in no active distress currently. NEUROLOGIC: The patient is alert and oriented. LUNGS: Clear to auscultation bilaterally. CARDIOVASCULAR: Regular rate and rhythm. Normal S1, S2. ABDOMEN: Obese, soft. Midline incision covered with dressing. Bowel sounds hypoactive, but positive. EXTREMITIES: Lower extremities with no significant edema. Pulses 2+. Capillary refill is less than 2 seconds. LABORATORY: Elevation of BUN 21 and creatinine 1.42. CBC unremarkable. ASSESSMENT: 1. Gastric polyp status post open gastrotomy with tumor removal, postoperative day 0. 2. History of hypertension. 3. Coronary artery disease. 4. Diabetes mellitus, type 2. PLAN: At this time, the patient will be monitored on the Unit. I will resume his home medications. Once he starts taking a diet, we can resume his diabetes medications as well. He is on a clear liquid diet for now. We will monitor closely once he starts to take a diet. Continue DVT and GI ulcer prophylaxis. #[id number] [facility]
[2019-12-18] MEDS: KCL 20MEQ/D5 1/2NS 1,000 ML IVS PRN (14:34)
[2019-12-18] MEDS: cefOXitin SODIUM 1 GM in SODIUM CHL 0.9% 50ML MIN-BAG+ 50 ML IVPB SCH ×2 (14:34→22:29)
[2019-12-18] MEDS ORDERED: LOSARTAN POTASSIUM 100 MG TAB ONE (17:27)
[2019-12-18] MEDS ORDERED: LOSARTAN POTASSIUM 100 MG TAB PO ONE (17:29)
[2019-12-18] MEDS ORDERED: GLUCAGON INJ 1 MG VIAL SUBCU PRN (17:30)
[2019-12-18] MEDS ORDERED: DEXTROSE 10% 500ML IVPB PRN (17:30)
[2019-12-18] MEDS ORDERED: PROMETHAZINE HCL INJ 25 MG/ML VIAL ONE (18:07)
[2019-12-18] MEDS ORDERED: SODIUM CHLORIDE 0.9% 50ML 50 ML ONE (18:08)
[2019-12-18] MEDS ORDERED: cloNIDine HCL 0.1 MG TAB PO ONE (19:05)
[2019-12-18] MEDS ORDERED: hydrALAZINE HCl 20 MG/ML VIAL IV ONE (20:26)
[2019-12-18] MEDS: ATORVASTATIN 20 MG TAB PO SCH (20:35)
[2019-12-18] MEDS: metFORMIN HCL 500 MG TAB PO SCH (21:00)
[2019-12-18] MEDS ORDERED: METFORMIN HCL 850 MG PO SCH (21:00)
[2019-12-18] MEDS: INSULIN LISPRO 100 UNITS/ML PEN SUBCU SCH (21:01)
[2019-12-18] MEDS: MORPHINE SULFATE INJ 10 MG/ML VIAL IV PRN (21:42)
[2019-12-19] MEDS: MORPHINE SULFATE INJ 10 MG/ML VIAL IV PRN (03:50)
[2019-12-19] MEDS: KCL 20MEQ/D5 1/2NS 1,000 ML IVS PRN (04:20)
[2019-12-19] MEDS: PANTOPRAZOLE SODIUM TAB 40 MG PO SCH (06:11)
[2019-12-19] MEDS ORDERED: ASPIRIN (CHEWABLE) 81 MG TAB ONE (06:59)
[2019-12-19] MEDS ORDERED: ENOXAPARIN SODIUM 30 MG/0.3 ML SYG SUBCU ONE (07:00)
[2019-12-19] MEDS ORDERED: POTASSIUM CHLORIDE 10 MEQ TAB PO ONE (07:00)
[2019-12-19] MEDS: INSULIN LISPRO 100 UNITS/ML PEN SUBCU SCH ×5 (07:48→21:01)
[2019-12-19] MEDS: ASPIRIN (CHEWABLE) 81 MG TAB PO SCH (08:15)
[2019-12-19] MEDS: POTASSIUM CHLORIDE 10 MEQ TAB PO SCH (08:16)
[2019-12-19] MEDS: metFORMIN HCL 500 MG TAB PO SCH ×2 (08:16→16:29)
[2019-12-19] MEDS: METOPROLOL SUCCINATE XL 25 MG TAB PO SCH (08:17)
[2019-12-19] MEDS: ENOXAPARIN SODIUM 30 MG/0.3 ML SYG SUBCU SCH (08:18)
[2019-12-19] MEDS: FUROSEMIDE 40 MG TAB PO SCH (09:38)
[2019-12-19] MEDS ORDERED: INSULIN DETEMIR 100 UNITS/ML PEN SUBCU ONE ×3 (11:37→21:27)
[2019-12-19] MEDS ORDERED: INSULIN LISPRO 100 UNITS/ML PEN SUBCU ONE (11:39)
[2019-12-19] MEDS ORDERED: SODIUM CHLORIDE 0.45% 1000ML 1,000 ML IVS ONE (11:43)
[2019-12-19] MEDS ORDERED: SODIUM CHLORIDE 0.9% 1000ML 0 ML ONE (11:43)
[2019-12-19] MEDS ORDERED: NON-FORMULARY MEDICATION 1 EA MIS (Rosuvastatin Calcium [Rosuvastatin Calcium] 40 MG) PO SCH (11:45)
--- NOTE | 2019-12-19 13:28 | PN ---
DATE: 12/19/19 SUBJECTIVE: Postoperative day 1 open removal of gastric tumor. The patient complains of abdominal pain not out of the ordinary. No nausea or vomiting. He is voiding. He has not passed any gas yet. OBJECTIVE: VITAL SIGNS: T-max 98. Pulse in the 70s and 80s. Blood pressure latest 150/70. Oxygen saturation 96% on room air. GENERAL: He is conscious, alert and well oriented. No distress. LUNGS: Breath sounds are clear. ABDOMEN: Mildly distended. No oozing from the dressing. EXTREMITIES: No significant peripheral edema. LABORATORY: White blood cell count 12, hematocrit 40. Potassium slightly high at 5.4. Creatinine 1.5, which is a bump of 0.1. Glucose 288. He has had adequate urine output. ASSESSMENT: 1. Postoperative day 1 open excision of gastric tumor, routine. PLAN: The patient is doing well. He will continue today to monitor his blood sugars and blood pressure and have pain control and possibly be able to be discharged tomorrow if issues are stable. #[id number] [facility]
[2019-12-19] MEDS: ATORVASTATIN 20 MG TAB PO SCH (20:55)
[2019-12-20] MEDS: PANTOPRAZOLE SODIUM TAB 40 MG PO SCH (06:05)
[2019-12-20] MEDS: INSULIN LISPRO 100 UNITS/ML PEN SUBCU SCH ×2 (07:15→07:56)
[2019-12-20] MEDS: metFORMIN HCL 500 MG TAB PO SCH (07:54)
[2019-12-20] MEDS: ASPIRIN (CHEWABLE) 81 MG TAB PO SCH (09:23)
[2019-12-20] MEDS: FUROSEMIDE 40 MG TAB PO SCH (09:23)
[2019-12-20] MEDS: ENOXAPARIN SODIUM 30 MG/0.3 ML SYG SUBCU SCH (09:23)
[2019-12-20] MEDS: POTASSIUM CHLORIDE 10 MEQ TAB PO SCH (09:23)
[2019-12-20] MEDS: METOPROLOL SUCCINATE XL 25 MG TAB PO SCH (09:24)
[2019-12-20 10:02] VITALS: TEMP 98.2; O2SAT 96
--- NOTE | 2019-12-20 10:21 | PN ---
DATE: 12/19/19 SUPERVISING PHYSICIAN: Landry Walsh MD SUBJECTIVE: The patient is doing well. His pain is controlled. He is tolerating some clear liquids. He is using his pillow for spline. He has not had any nausea. I have resumed his home medications. OBJECTIVE: VITAL SIGNS: Temperature 98.4, pulse 74, blood pressure 10/62, respirations 24, oxygen saturation 97% on room air. I&O: positive balance of 105. He has not yet a bowel movement. GENERAL: Patient appears to be resting comfortably and in no acute distress. He is alert. CHEST: Clear to auscultation bilaterally. HEART: Regular rate and rhythm. ABDOMEN: Soft, tender over the incisional site. No rebound tenderness. Bowel sounds were hypoactive but present. EXTREMITIES: Without edema. NEUROLOGIC: Alert and oriented x 3. LABORATORY: White count 12,300, hemoglobin 13, hematocrit 40.6, platelet count 211,000, differential shows a left shift. Chemistries shows a sodium of 134, potassium 5.4, BUN 24, creatinine 1.59. Blood sugars have been elevated between 198 and 305. Calcium 8.5. ASSESSMENT: 1. Gastric polyp status post open gastrotomy with tumor removal, postoperative day #1. 2. Hypertension with medication resumed and showing to be stable. 3. Renal insufficiency likely prerenal azotemia secondary to some dehydration. 4. Diabetes mellitus, type 2 with hyperglycemia secondary to recent surgery. 5. Coronary artery disease. PLAN: I have increased his insulin coverage with additional 8 units at a.c. on sliding scale as well as started him on long-acting Levemir, initially 35 units. Will add additional as needed at bedtime. Will go ahead and give him a bolus of fluids in efforts to improve his output as well as his creatinine. Will plan to repeat labs in the morning. He is on a clear liquid diet. Will defer further surgical management to Link and will continue to monitor blood sugars and fluid status as needed. Until we can transition him to outpatient management which will hopefully be tomorrow, we will continue to monitor and treat as needed #[id number] [facility]
--- NOTE | 2019-12-22 08:24 | DS ---
SUPERVISING PHYSICIAN: Kaylin Walsh MD ADMISSION DIAGNOSIS: 1. Gastric polyp status post open gastrotomy with tumor removal, postoperative day 0. 2. History of hypertension. 3. Coronary artery disease. 4. Diabetes mellitus, type 2. DISCHARGE DIAGNOSIS: 1. Gastric polyp status post open gastrotomy with tumor removal, postoperative day #2. 2. Hypertension with medication resumed and showing to be stable. 3. Renal insufficiency likely prerenal azotemia secondary to underlying dehydration, stable, to be managed further as an outpatient. 4. Diabetes mellitus, type 2, better controlled prior to discharge. 5. Coronary artery disease. REASON FOR HOSPITALIZATION: This is an 84-year-old male patient with a history of a gastric polyp. He had an EGD and although the polyp was biopsied, it was unable to be retrieved. Therefore, the patient today underwent an elective open gastrotomy with removal of a gastric tumor. This was done without any intraoperative complications and he returned to the Unit in stable condition. Please see the operative report. Postoperatively, the patient is alert and oriented, in no distress, however, he does have multiple medical conditions that need to be monitored while in the hospital. PROCEDURE: Open gastrotomy with removal of gastric tumor by Dr. Babak Link, general surgeon. Please see his operative note for details. LABORATORY: White count after surgery was 12,300, hemoglobin 13.3, hematocrit 20.6, platelet count 211,000. Differential showed a left shift in postoperative state. Discharge electrolytes were within normal limits. BUN 22, creatinine 1.61. Blood sugars were better controlled from 96 to 143. HOSPITAL COURSE: Mr. Kaur was noted on 12/18/19 as noted in history of present illness for elective surgery to remove a polyp through gastrotomy procedure done by Dr. Link. He had no intraoperative complications. Postoperatively, he did well with pain control, was tolerating a diet, was ambulating and having bowel movements. He showed no signs of complications and was clinically stable enough to continue with outpatient management. PHYSICAL ASSESSMENT ON DISCHARGE: VITAL SIGNS: Temperature 98.2. Pulse 80. Blood pressure 184/73. Respirations 18. Saturation 96% on room air. GENERAL: The patient was resting comfortably, just finished ambulating. He is alert. CHEST: Clear to auscultation. HEART: Regular rate and rhythm. ABDOMEN: Tender over the incision site. Twin in place. Clean and dry. No sign of infection. Positive bowel sounds. EXTREMITIES: No edema. NEUROLOGIC: Alert and oriented time 3. PLAN: Mr. Kaur was discharged on 12/20/[address] Link in one week. He was to resume his medications as prior to hospitalization. Wound care as per Dr. Link's instruction. He was given warnings to return to the Emergency Room if he had any concerning symptoms or as needed. Diet on discharge was diabetic diet. Activity to increase as tolerated. No strenuous activity, exercise or lifting until cleared by Dr. Link. May shower, but no tub baths. Prescription at discharge included pain medicine of Tylenol #3, 1 q.4h. as needed, no refills. All other medications prior to hospitalization were continued. CONDITION ON DISCHARGE: Stable and improving. DISPOSITION: The patient is discharged home. #[id number] [facility]
[2019-12-25 02:55] VITALS: BP 161/70
== END 2019-12-20 11:40 | disposition home or self-care (01) | DRG 328 ==
LOC: AMB 05:42 → MS 11:40
PROVIDERS: ADMIT Surgery; ATTEND Surgery
PROC: 0DB60ZZ Excision of Stomach, Open Approach (ICD-10-PCS; principal; 2019-12-18 09:50)
DX: D13.1 Benign neoplasm of stomach (principal); D50.9 Iron deficiency anemia, unspecified; E86.0 Dehydration; R79.89 Other specified abnormal findings of blood chemistry; E11.9 Type 2 diabetes mellitus without complications; E78.5 Hyperlipidemia, unspecified; K21.9 Gastro-esophageal reflux disease without esophagitis; I25.10 Atherosclerotic heart disease of native coronary artery without angina pectoris; I10 Essential (primary) hypertension; E66.9 Obesity, unspecified; Z95.1 Presence of aortocoronary bypass graft; Z79.82 Long term (current) use of aspirin; Z95.5 Presence of coronary angioplasty implant and graft; Z87.891 Personal history of nicotine dependence; Z79.899 Other long term (current) drug therapy; Z68.32 Body mass index [BMI] 32.0-32.9, adult

== ENCOUNTER → 2020-08-26 | Outpatient (CLI) | payer MEDICARE | LOC: GMAL 10:24 | PROVIDERS: ATTEND Family Medicine | DX: D50.8 Other iron deficiency anemias (principal); E11.9 Type 2 diabetes mellitus without complications; I10 Essential (primary) hypertension; E78.49 Other hyperlipidemia ==

== ENCOUNTER → 2020-10-07 | Outpatient (CLI) | payer MEDICARE | LOC: GMAL 10:54 | PROVIDERS: ATTEND Family Medicine | DX: R97.20 Elevated prostate specific antigen [PSA] (principal) ==

== ENCOUNTER → 2021-01-17 | Outpatient (CLI) | payer MEDICARE | LOC: GMAL 10:38 | PROVIDERS: ATTEND Family Medicine | DX: D51.3 Other dietary vitamin B12 deficiency anemia (principal); D64.9 Anemia, unspecified; E55.9 Vitamin D deficiency, unspecified; I10 Essential (primary) hypertension; E11.9 Type 2 diabetes mellitus without complications; R97.20 Elevated prostate specific antigen [PSA] ==